=== PATIENT | male | born 2000 | race African-American/Black ===

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

== ENCOUNTER 2022-10-31 11:18 | Emergency (ER) | payer MEDICAID ==
[2022-10-31 11:29] VITALS: BP 145/87
[2022-10-31 11:52] LABS: RAPID STREP SCREEN Negative (Negative)
[2022-10-31] MEDS ORDERED: CHERRY SYRUP 10 ML UDC PO ONE (12:09)
[2022-10-31] MEDS ORDERED: DEXAMETHASONE 10 MG/ML VIAL PO STA (12:09)
--- NOTE | 2022-10-31 12:09 | ED Physician Documentation ---
History of Present Illness - Stated complaint Stated Complaint: DIZZINESS/LIGHT HEADED - Chief complaint Chief Complaint: General - History obtained from History obtained from: Patient - Additonal information Additional information: Otherwise healthy 21-year-old gentleman has been sick for about 3 days with nasal congestion and sore throat and poor appetite. He has had low-grade fevers at home. Has not checked himself for COVID. Needs a note for work. PD PAST MEDICAL HISTORY - Past Surgical History Past Surgical History: No - Present Medications Home Medications: Ambulatory Orders Medication Instructions Recorded Confirmed No Known Home Medications 12/25/15 10/31/22 - Allergies Allergies/Adverse Reactions: Allergies Allergy/AdvReac Type Severity Reaction Status Date / Time No Known Drug Allergies Allergy Verified 10/31/22 11:29 - Social History Does the pt smoke?: No Smoking Status: Never smoker - Immunizations Immunizations are current?: Yes PD ED PE NORMAL - Vitals Vital signs reviewed: Yes - General General: Alert and oriented X 3, No acute distress - HEENT HEENT: Other (Mild tonsillar and uvular redness without swelling or exudates, TMs normal, mild anterior cervical adenopathy.) - Neck Neck: Supple, no meningeal sign, No bony TTP - Respiratory Respiratory: No respiratory distress, Clear bilaterally - Abdomen Abdomen: Non tender - Back Back: No CVA TTP, No spinal TTP - Derm Derm: Normal color, Warm and dry - Neuro Neuro: Alert and oriented X 3, Normal speech Results - Vitals Vitals: Vital Signs - 24 hr 10/31/22 11:24 Temperature 37 C Heart Rate 87 Respiratory 16 Rate Blood Pressure 145/87 H O2 Saturation 100 Oxygen O2 Source Room air - Labs Labs: Laboratory Tests 10/31/22 10/31/22 11:35 11:35 Nasal Adenovirus (PCR) NOT DETECTED Nasal B. parapertussis DNA (PCR) NOT DETECTED Nasal Coronavir 229E PCR NOT DETECTED Nasal Coronavir HKU1 PCR NOT DETECTED Nasal Coronavir NL63 PCR NOT DETECTED Nasal Coronavir OC43 PCR NOT DETECTED Nasal Enterovir/Rhinovir PCR NOT DETECTED Nasal Influenza B PCR NOT DETECTED Nasal Influenza A PCR NOT DETECTED Nasal Parainfluen 1 PCR NOT DETECTED Nasal Parainfluen 2 PCR NOT DETECTED Nasal Parainfluen 3 PCR NOT DETECTED Nasal Parainfluen 4 PCR NOT DETECTED Nasal RSV (PCR) NOT DETECTED Nasal B.pertussis DNA PCR NOT DETECTED Nasal C.pneumoniae (PCR) NOT DETECTED Chip Human Metapneumo PCR DETECTED A Nasal M.pneumoniae (PCR) NOT DETECTED Nasal SARS-CoV-2 (PCR) NOT DETECTED Group A Strep Rapid Negative PD Medical Decision Making - ED course ED course: 21-year-old gentleman with what sounds like a viral URI with prominent pharyngitis. He is orthostatic per the nurse but I do not think he needs IV fluids. He is given some dexamethasone here and encouraged to increase p.o. fluids. Rapid strep test is reviewed and negative. [facility] respiratory panel positive for human metapneumovirus. Departure - Departure Disposition: Home, Self Care Clinical Impression: Viral pharyngitis Condition: Good Record reviewed to determine appropriate education?: Yes Instructions: ED Pharyngitis Viral Report Pending Comments: You have a Covid test pending. We will call with a positive result, the fastest way to get a negative result for confirmation though is to go to the hospital website at [email or web address], click on the my [facility] tab and sign up for the patient portal. Return if not better by Thursday, sooner if worse. Forms: Activity restrictions Discharge Date/Time: 10/31/22 12:25
[2022-10-31 12:36] LABS: B. PARAPERTUSSIS- RESP PCR PAN NOT DETECTED; B. PERTUSSIS- RESP PCR PANEL NOT DETECTED; C. PNEUMONIAE- RESP PCR PANEL NOT DETECTED; CORONAVIRUS 229E-RESP PCR NOT DETECTED; CORONAVIRUS HKU1-RESP PCR NOT DETECTED; CORONAVIRUS NL63-RESP PCR NOT DETECTED; CORONAVIRUS OC43-RESP PCR NOT DETECTED; HUMAN METAPNEUMOVIRUS DETECTED; INFLUENZA A- RESP PCR PANEL NOT DETECTED; INFLUENZA B - RESP PCR PANEL NOT DETECTED; M. PNEUMONIAE- RESP PCR PANEL NOT DETECTED; PARAINFLUENZA VIRUS 1 NOT DETECTED; PARAINFLUENZA VIRUS 2 NOT DETECTED; PARAINFLUENZA VIRUS 3 NOT DETECTED; PARAINFLUENZA VIRUS 4 NOT DETECTED; RHINOVIRUS/ENTEROVIRUS NOT DETECTED; RSV- RESP PCR PANEL NOT DETECTED; SARS-CoV-2 -RESP PCR PANEL NOT DETECTED
== END 2022-10-31 12:25 | disposition home or self-care (01) ==
LOC: ED 11:18
DX: J02.8 Acute pharyngitis due to other specified organisms (principal); Z20.822 Contact with and (suspected) exposure to COVID-19
CPT/HCPCS: 87070; 87430; 87633; 99283; A9270

== ENCOUNTER 2024-01-29 08:20 | Outpatient (CLI) | payer BC, MEDICAID ==
[2024-01-29 23:54] LABS: CHLAMYDIA TRACHOMATIS DNA NEGATIVE (NEGATIVE); NEISSERIA GONORRHOEAE DNA NEGATIVE (NEGATIVE); TRICHOMONAS VAGINALIS DNA NEGATIVE (NEGATIVE)
== END 2024-01-29 17:06 | disposition home or self-care (01) ==
LOC: LAB.N 08:20
PROVIDERS: ATTEND Physician Assistant
DX: Z20.2 Contact with and (suspected) exposure to infections with a predominantly sexual mode of transmission (principal)
CPT/HCPCS: 87491; 87591; 87661